=== PATIENT | male | born 1980 | race Caucasian/White ===

== ENCOUNTER 2017-07-05 18:37 | Inpatient (IN) | payer OTHER ==
[2017-07-05] MEDS ORDERED: IOHEXOL 350 MG/ML 10 ML VIAL (for RAD DIAG) IVCONTRAST ONE (18:38)
[2017-07-05] MEDS ORDERED: MORPHINE SULFATE 8 MG/ML INJ ONE (18:43)
[2017-07-05] MEDS ORDERED: ONDANSETRON HCL 4 MG/2 ML VIAL ONE (18:43)
[2017-07-05 18:48] VITALS: O2SAT 100
[2017-07-05 18:59] LABS: AUTOMATED NEUTROPHIL # 3.3 TH/MM3 (1.8-7.7); BASOPHIL % 0.3 % (0.0-2.0); EOSINOPHIL # 0.2 TH/MM3 (0-0.4); EOSINOPHIL % 2.3 % (0.0-4.0); HEMOGLOBIN 15.7 GM/DL (13.0-17.0); LYMPH % 38.7 % (9.0-44.0); LYMPHOCYTE # 2.6 TH/MM3 (1.0-4.8); MEAN CELL VOLUME 86.2 FL (80.0-100.0); MEAN CORPUSCULAR HEMOGLOBIN 30.1 PG (27.0-34.0); MEAN CORPUSCULAR HGB CONC 34.9 % (32.0-36.0); MONO % 8.5 % (0.0-8.0); MONOCYTE # 0.6 TH/MM3 (0-0.9); NEUT % 50.2 % (16.0-70.0); PLATELET COUNT 134 TH/MM3 (150-450); RED BLOOD COUNT 5.22 MIL/MM3 (4.50-5.90); RED CELL DISTRIBUTION WIDTH 12.8 % (11.6-17.2); WHITE BLOOD COUNT 6.7 TH/MM3 (4.0-11.0)
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
[2017-07-05 19:37] VITALS: BP 159/88; PULSE 83; RESP 19; O2SAT 99
[2017-07-05 19:42] VITALS: RESP 19; O2SAT 99
[2017-07-05] MEDS ORDERED: MORPHINE SULFATE 4 MG/ML INJ IV PUSH ONE (19:45)
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
[2017-07-05] MEDS ORDERED: KETOROLAC TROMETHAMINE 30 MG/ML (IVP) VIAL IV PUSH ONE (21:00)
[2017-07-05 21:30] VITALS: BP 127/61; PULSE 72; RESP 17; O2SAT 98
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
[2017-07-06] MEDS ORDERED: DIAZEPAM 10 MG TAB PO ONE
[2017-07-06] MEDS ORDERED: traMADol HCL 50 MG TAB PO ONE
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
[2017-07-06] MEDS ORDERED: SODIUM CHLORIDE 0.9% FLUSH 10 ML FLUSH IV FLUSH PRN (02:15)
[2017-07-06] MEDS ORDERED: CHLORHEXIDINE GLUCONATE 2 % 1 PACK (2 CLOTHS) TOP PRN (02:15)
[2017-07-06] MEDS ORDERED: MISCELLANEOUS NURSING INFORMATION XX SCH (02:15)
[2017-07-06] MEDS ORDERED: KETOROLAC TROMETHAMINE 30 MG/ML (IVP) VIAL IVP PRN (02:15)
[2017-07-06] MEDS ORDERED: HYDROmorphone HCL PF 2 MG/ML VIAL IV PRN (02:15)
[2017-07-06] MEDS ORDERED: ONDANSETRON HCL 4 MG/2 ML VIAL IV PUSH PRN (02:15)
[2017-07-06 03:43] VITALS: BP 120/66; PULSE 73; RESP 20; TEMP 98.2; O2SAT 95
[2017-07-06] MEDS: CHLORHEXIDINE GLUCONATE 2 % 1 PACK (2 CLOTHS) TOP SCH (04:00)
[2017-07-06 08:00] VITALS: BP 119/55; PULSE 68; RESP 15; TEMP 96; O2SAT 94
[2017-07-06] MEDS: METHOCARBAMOL 500 MG TAB PO SCH ×3 (08:09→20:31)
[2017-07-06] MEDS: DOCUSATE SODIUM 50 MG/SENNA 8.6 MG TAB PO SCH ×2 (08:17→20:31)
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
[2017-07-06] MEDS: KETOROLAC TROMETHAMINE 30 MG/ML (IVP) VIAL IV PUSH SCH ×2 (11:49→16:21)
[2017-07-06 11:55] VITALS: BP 123/61; PULSE 87; RESP 20; TEMP 98.3; O2SAT 97
[2017-07-06] MEDS ORDERED: MORPHINE SULFATE 4 MG/ML INJ IV PUSH PRN (12:15)
[2017-07-06] MEDS: GABAPENTIN 300 MG CAP PO SCH ×2 (12:52→16:21)
[2017-07-06] MEDS: LIDOCAINE HCL 5% PATCH TD SCH (12:53)
[2017-07-06 15:27] VITALS: BP 135/60; PULSE 86; RESP 20; TEMP 98.2; O2SAT 95
[2017-07-06] MEDS ORDERED: REMOVE OLD PATCH T-DERMAL SCH (21:00)
[2017-07-06 21:05] VITALS: BP 128/60; PULSE 69; RESP 18; TEMP 98; O2SAT 95
[2017-07-07 01:17] VITALS: BP 143/73; PULSE 75; RESP 18; TEMP 97.3; O2SAT 95
[2017-07-07] MEDS: CHLORHEXIDINE GLUCONATE 2 % 1 PACK (2 CLOTHS) TOP SCH (04:00)
[2017-07-07 05:26] VITALS: BP 124/59; PULSE 94; RESP 18; TEMP 97.7; O2SAT 95
[2017-07-07] MEDS: METHOCARBAMOL 500 MG TAB PO SCH ×2 (05:44→13:25)
[2017-07-07] MEDS: KETOROLAC TROMETHAMINE 30 MG/ML (IVP) VIAL IV PUSH SCH ×2 (05:45)
[2017-07-07 07:56] VITALS: BP 112/63; PULSE 104; RESP 20; TEMP 98.1; O2SAT 94
[2017-07-07] MEDS: GABAPENTIN 300 MG CAP PO SCH ×2 (08:04→12:14)
[2017-07-07] MEDS: DOCUSATE SODIUM 50 MG/SENNA 8.6 MG TAB PO SCH (08:05)
[2017-07-07] MEDS: LIDOCAINE HCL 5% PATCH TD SCH (08:06)
[2017-07-07 12:13] VITALS: BP 134/66; PULSE 73; RESP 20; TEMP 98.2; O2SAT 99
[2017-07-07] MEDS ORDERED: PERI PO (12:51)
[2017-07-07] MEDS ORDERED: PERC10TA27 PO (12:51)
[2017-07-07] MEDS ORDERED: METH500T3 PO (12:51)
[2017-07-07] MEDS ORDERED: IBUP1TAB7 PO (12:51)
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
== END 2017-07-07 14:00 | disposition home or self-care (01) | DRG 552 ==
LOC: NEPI 18:37 → NEDA 07-06 02:05 → OBSVTOIN 07-06 02:16 → EDBD 07-06 02:16 → NEDA 07-06 03:34 → N05B 07-06 09:44
PROVIDERS: ADMIT Surgery Trauma Surgery; ATTEND Surgery Trauma Surgery
DX: S32.029A Unspecified fracture of second lumbar vertebra, initial encounter for closed fracture (principal); E66.9 Obesity, unspecified; S32.039A Unspecified fracture of third lumbar vertebra, initial encounter for closed fracture; M54.9 Dorsalgia, unspecified; S00.01XA Abrasion of scalp, initial encounter; R40.2411 Glasgow coma scale score 13-15, in the field [EMT or ambulance]; S00.03XA Contusion of scalp, initial encounter; M25.461 Effusion, right knee; V48.5XXA Car driver injured in noncollision transport accident in traffic accident, initial encounter; Y92.410 Unspecified street and highway as the place of occurrence of the external cause; Z87.820 Personal history of traumatic brain injury
CPT/HCPCS: 70450; 71045; 71260; 72125; 72148; 72170; 73551; 73590; 73700; 74177; 80048; 80307; 85025; 85610; 85730; 86850; 86900; 86901; 96374; 96375; 96376; 99291; G0390; J1170; J1885; J2270; J2405; Q9967